=== PATIENT | male | born 1990 | race Hispanic/Latino ===

== ENCOUNTER 2017-02-20 07:33 | Inpatient (IN) | payer OTHER ==
[2017-02-20] VITALS (14 sets, daily range): BP systolic 110–135; BP diastolic 71–85
[~2017-02-20] VITALS: Ht 185.4 cm; Wt 129.1 kg
[~2017-02-20 07:33] MED LIST: BENTYL20 MG PO; FLEXERIL10 MG PO; LEVOTHYROXINE200 MC1 PO; LIOTHYRONINE S25 MCG PO; LISINOPRIL20 MG PO; NAPROXEN500 MG PO; PERCOCET 5/31 TABLET PO; SYNTHROID125 MCG PO; TIGER BALM MUSC57 GM TP; TUMS500 MG PO; ZOFRAN ODT4 MG PO
[2017-02-20 08:30] LABS: EOSINOPHIL (%) 1.4 % (0-5); EOSINOPHIL COUNT 0.1 K/uL (0-0.3); IMMATURE GRANULOCYTE (%) 0.3 % (0.0-0.7); INSTRUMENT ABS NEUTROPHIL CT 3.9 K/uL; LYMPHOCYTE COUNT 1.9 K/uL (1.0-2.8); MCH 30.3 PG (29.0-34.0); MCHC 34.2 G/DL (30.0-36.0); MCV 88.7 FL (86-99); MEAN PLAT.VOLUME 11.1 uM^3 (9.0-12.4); MONOCYTE (%) 4.3 % (3-12); MONOCYTE COUNT 0.3 K/uL (0-0.8); NEUTROPHIL (%) 63.1 % (45-76); NEUTROPHIL COUNT 3.9 K/uL (1.8-6.4); PLATELET COUNT 200 K/uL (156-360); RBC DIS.WIDTH-CV 12.7 % (11.8-14.6); RBC DIS.WIDTH-SD 40.9 % (39-53); RED BLOOD COUNT 4.85 M/uL (4.00-5.50); WHITE BLOOD COUNT 6.2 K/uL (4.1-10.2)
[2017-02-20 08:38] LABS: CHLORIDE 95 mEq/L (99-109); POTASSIUM 3.8 mEq/L (3.7-5.4); SODIUM 130 mEq/L (136-147)
[2017-02-20 08:42] LABS: ANION GAP 19 MEQ/L (2-14); GLUCOSE 493 mg/dL (70-99)
[2017-02-20 08:44] LABS: ALKALINE PHOSPHATASE 62 IU/L (3-129); GFR ESTIMATE (CALCULATED) > 59 mL/min/
[2017-02-20 08:45] LABS: UREA NITROGEN (BUN) 11 mg/dL (9-23)
[2017-02-20 08:47] LABS: LIPASE 42 U/L (1.0-51.0)
[2017-02-20 09:20] LABS: CARBON DIOXIDE (BICARBONATE) 19.8 MEQ/L (20-31)
[2017-02-20 09:35] LABS: Estimated Average Glucose 361 mg/dL (70-123); HEMOGLOBIN A1c (GLYCOHEMOGLOB) 14.2 % HGB (Below 5.7)
[2017-02-20 09:53] LABS: ADD MIUA? YES; BILIRUBIN NEGATIVE; BLOOD NEGATIVE; COLOR STRAW ((YELLOW)); GLUCOSE (STRIP) >=500; KETONES 20; LEUKOCYTES NEGATIVE; NITRITE NEGATIVE; PROTEIN (STRIP) 100; SPECIFIC GRAVITY 1.038 (1.000-1.030); UROBILINOGEN 0.2 MG/DL (0.2-1.0)
[2017-02-20 10:01] LABS: BACTERIA NONE SEEN /HPF; EPITHELIAL CELLS RARE /HPF; MUCUS NONE SEEN /LPF; RED BLOOD CELLS 0-5 /HPF (0-5); UCUL ADDED? NO; WHITE BLOOD CELLS 0-5 /HPF (0-5)
[2017-02-20 11:14] LABS: POINT-OF-CARE METER ID UU14208751
[2017-02-20] MEDS ORDERED: METFORMIN HCL1000 MG PO (11:44)
[2017-02-20] MEDS ORDERED: GEMFIBROZIL600 MG PO (11:44)
[2017-02-20 11:52] LABS: POINT-OF-CARE METER ID UU14208751
[2017-02-20 12:10] LABS: METH RESISTANT S AUREUS PCR NEGATIVE (NEGATIVE)
[2017-02-20 12:12] LABS: ANION GAP 10 MEQ/L (2-14); CHLORIDE 100 MEQ/L (99-109); POTASSIUM 3.7 MEQ/L (3.7-5.4); SAMPLE HEMOLYSIS CHECK 0; SAMPLE ICTERIC CHECK 0; SAMPLE LIPEMIA CHECK 1; SODIUM 134 MEQ/L (136-147)
[2017-02-20 12:18] LABS: GFR ESTIMATE (CALCULATED) > 59 mL/min/; GLUCOSE 314 mg/dL (70-99); UREA NITROGEN (BUN) 10 mg/dL (9-23)
[2017-02-20 12:21] LABS: PROBE CHECK PASS
[2017-02-20 12:38] LABS: POINT-OF-CARE METER ID UU14208751
[2017-02-20] MEDS ORDERED: LEVOTHYROXINE200 MC1 PO (12:49)
[2017-02-20 13:50] LABS: POINT-OF-CARE METER ID UU14208751
[2017-02-20 14:52] LABS: POINT-OF-CARE METER ID UU14208751
[2017-02-20 15:35] LABS: POINT-OF-CARE METER ID UU14208751
[2017-02-20 16:15] LABS: ANION GAP 7 MEQ/L (2-14); CHLORIDE 102 MEQ/L (99-109); POTASSIUM 3.4 MEQ/L (3.7-5.4); SAMPLE HEMOLYSIS CHECK 0; SAMPLE ICTERIC CHECK 0; SAMPLE LIPEMIA CHECK 1; SODIUM 135 MEQ/L (136-147)
[2017-02-20 16:21] LABS: GFR ESTIMATE (CALCULATED) > 59 mL/min/; GLUCOSE 211 mg/dL (70-99); UREA NITROGEN (BUN) 9 mg/dL (9-23)
[2017-02-20 16:42] LABS: POINT-OF-CARE METER ID UU14208751
[2017-02-20 16:52] LABS: POINT-OF-CARE METER ID UU13113778
[2017-02-20 18:05] LABS: POINT-OF-CARE METER ID UU14208751
[2017-02-20 19:05] LABS: POINT-OF-CARE METER ID UU14208751
[2017-02-20 19:41] LABS: POINT-OF-CARE METER ID UU14208751
[2017-02-20 20:24] LABS: ANION GAP 11 MEQ/L (2-14); CHLORIDE 98 MEQ/L (99-109); POTASSIUM 3.1 MEQ/L (3.7-5.4); SAMPLE HEMOLYSIS CHECK 0; SAMPLE ICTERIC CHECK 0; SAMPLE LIPEMIA CHECK 1; SODIUM 134 MEQ/L (136-147)
[2017-02-20 20:30] LABS: GFR ESTIMATE (CALCULATED) > 59 mL/min/; GLUCOSE 227 mg/dL (70-99); UREA NITROGEN (BUN) 8 mg/dL (9-23)
[2017-02-20 21:03] LABS: POINT-OF-CARE METER ID UU14208751; POINT-OF-CARE USER ID 609231305
[2017-02-20 22:01] LABS: POINT-OF-CARE METER ID UU14208751
[2017-02-20 23:03] LABS: POINT-OF-CARE METER ID UU14208751
[2017-02-21] VITALS (10 sets, daily range): BP systolic 106–125; BP diastolic 52–78
[2017-02-21 01:21] LABS: CHLORIDE 101 mEq/L (99-109); POTASSIUM 3.4 mEq/L (3.7-5.4); SODIUM 134 mEq/L (136-147)
[2017-02-21 01:23] LABS: GLUCOSE 277 mg/dL (70-99)
[2017-02-21 01:25] LABS: ANION GAP 8 MEQ/L (2-14)
[2017-02-21 01:27] LABS: GFR ESTIMATE (CALCULATED) > 59 mL/min/
[2017-02-21 01:28] LABS: UREA NITROGEN (BUN) 9 mg/dL (9-23)
[2017-02-21 02:26] LABS: POINT-OF-CARE METER ID UU14208751
[2017-02-21 06:01] LABS: POINT-OF-CARE METER ID UU14208751
[2017-02-21 06:35] LABS: ANION GAP 8 MEQ/L (2-14); CHLORIDE 99 MEQ/L (99-109); GFR ESTIMATE (CALCULATED) > 59 mL/min/; GLUCOSE 267 mg/dL (70-99); POTASSIUM 3.8 MEQ/L (3.7-5.4); SAMPLE HEMOLYSIS CHECK 0; SAMPLE ICTERIC CHECK 0; SAMPLE LIPEMIA CHECK 1; SODIUM 134 MEQ/L (136-147); UREA NITROGEN (BUN) 9 mg/dL (9-23)
[2017-02-21 11:09] LABS: ANION GAP 12 MEQ/L (2-14); CHLORIDE 98 MEQ/L (99-109); GFR ESTIMATE (CALCULATED) > 59 mL/min/; GLUCOSE 298 mg/dL (70-99); SAMPLE HEMOLYSIS CHECK 0; SAMPLE ICTERIC CHECK 0; SAMPLE LIPEMIA CHECK 1; SODIUM 130 MEQ/L (136-147); UREA NITROGEN (BUN) 8 mg/dL (9-23)
[2017-02-21 12:01] LABS: POINT-OF-CARE METER ID UU14174217
[2017-02-21 14:45] LABS: POINT-OF-CARE METER ID UU14208751
[2017-02-21 17:29] LABS: POINT-OF-CARE METER ID UU14162508
[2017-02-21 21:49] LABS: POINT-OF-CARE METER ID UU14162508
[2017-02-22 04:16] VITALS: BP 129/77
[2017-02-22 06:10] LABS: POINT-OF-CARE METER ID UU14162508
[2017-02-22 07:22] VITALS: BP 120/71
[2017-02-22] MEDS ORDERED: NOVOLOG PE100 UNITS/ SC (11:15)
[2017-02-22] MEDS ORDERED: LEVEMIR100 UNIT/2 SC (11:15)
[2017-02-22] MEDS ORDERED: SYNTHROID25 MCG PO ×2 (11:18→11:32)
[2017-02-22 11:27] LABS: POINT-OF-CARE METER ID UU14162508
[2017-02-22] MEDS ORDERED: LEVEMIR FL100 UNIT/1 SC (11:29)
[2017-02-22] MEDS ORDERED: LANTUS 3 M100 UNITS1 SC (13:35)
== END 2017-02-22 14:07 | disposition home or self-care (01) | DRG 639 ==
LOC: EME 07:33 → EDOF 09:07 → ENRESERV 09:11 → 4WEST 10:07 → CANRESERV 02-21 13:12 → ENRESERV 02-21 13:12 → 2EAST 02-21 14:47
PROVIDERS: Internal Medicine; Internal Medicine Critical Care Medicine; Physician Assistant
DX: E10.10 Type 1 diabetes mellitus with ketoacidosis without coma (principal); E66.01 Morbid (severe) obesity due to excess calories; Z68.37 Body mass index [BMI] 37.0-37.9, adult; I10 Essential (primary) hypertension; J45.909 Unspecified asthma, uncomplicated; K58.0 Irritable bowel syndrome with diarrhea; Z79.4 Long term (current) use of insulin; Z85.850 Personal history of malignant neoplasm of thyroid; E89.0 Postprocedural hypothyroidism
CPT/HCPCS: 74020; 80048; 80048 91; 80053; 81003; 82010; 82803; 82948; 83036; 83690; 84100; 84439; 84443; 85025; 87641; 99281; 99285; J1650; J1815; J3010; J7030; J7050; J7120